=== PATIENT | male | born 1955 | race Caucasian/White ===

== ENCOUNTER 2016-07-24 11:12 | Inpatient (IN) | payer MEDICARE ==
[~2016-07-24] VITALS: Ht 180.3 cm; Wt 147.0 kg
--- NOTE | ~2016-07-24 | HEMODYNAMI ---
PATIENT:BELINDA WAGNER MEDICAL RECORD: [id number] : 57 LOCATION:[facility] D.[id number] ADMISSION DATE: 07/24/16 Generatedon:07/25/201615:09 Patient name: BELINDA WAGNER Patient #: [id number] SSN: : 1955 Date of study: 07/25/2016 Page: Of Hemodynamic Procedure Report Patient Data Patient Demographics Procedure consent was obtained First Name: BELINDA Gender: Male Last Name: KRISTY : 1955 Middle Initial: FABIO Age: 61 year(s) Patient #: [id number] Race: Unknown Additional ID: [id number] Contact details Address: [place] [address] State: [place] City: [place] Zip code: [address] Past Medical History Allergies Allergen Reaction Date Comments Reported Penicillins 07/25/2016 Admission Admission Data Admission Date: 07/24/2016 Admission Time: 11:12 Room #: D.2223 Height (in.): 69 BSA: 2.54 (m2) Height (cm.): 175.26 BMI: 47.85 (kg/m2) Weight (lbs.): 324 Weight (kg.): 146.96 Procedure Procedure Types Cath Procedure Peripheral Cath Diagnostic Procedure Miscellaneous Pleurex PARACENTESIS WITH GUIDE Peripheral vascular Intervention Procedure Description Procedure Date Procedure Date: 07/25/2016 Procedure Start Time: 14:11 Procedure Staff Name Function Donovan Hook MD Performing Physician Nela Beltran RT Scrub Melanie Hayden RN Nurse Kristine Wells RN Nurse Melanie Hayden RN Monitor Procedure Medications Medication Administration Route Dosage Versed I.V. 1 mg Fentanyl I.V. 50 mcg Versed I.V. 1 mg Fentanyl I.V. 50 mcg unlisted medication 25 Hemodynamics Rest BSA: 2.54 (m2) O2 Consumption: Estimated: 313.58 (ml/min) O2 Consumption indexed : Estimated:123.46 (ml/min/m) Heart Rate: 86 (bpm) Snapshots Pre Cath Intra NCS Post Cath Vital Signs Time Heart Resp SPO2 NIBP Rhythm Pain Sedation Rate (ipm) (%) (mmHg) Status Level (bpm) 14:11:26 85 16 99 No Cuff NSR 0 (11) , 10(A) No pain 14:15:26 85 17 98 No Cuff NSR 0 (11) , 10(A) No pain 14:19:25 86 18 99 No Cuff NSR 0 (11) , 10(A) No pain 14:23:25 85 22 97 No Cuff NSR 0 (11) , 10(A) No pain 14:27:25 86 16 97 No Cuff NSR 0 (11) , 10(A) No pain 14:31:24 85 17 96 No Cuff NSR 0 (11) , 10(A) No pain 14:35:24 84 17 97 No Cuff NSR 0 (11) , 10(A) No pain 14:39:24 84 21 98 No Cuff NSR 0 (11) , 10(A) No pain 14:43:23 86 18 98 No Cuff NSR 0 (11) , 10(A) No pain 14:47:23 84 17 98 No Cuff NSR 0 (11) , 10(A) No pain 14:51:22 82 17 98 No Cuff NSR 0 (11) , 10(A) No pain 14:55:22 82 21 98 No Cuff NSR 0 (11) , 10(A) No pain 14:59:22 82 20 98 No Cuff NSR 0 (11) , 10(A) No pain Medications Time Medication Route Dose Verified Delivered Reason Notes Effectivene ss by by 14:10:18 Fentanyl I.V. 50 Kristine Kristine for mcg Priscilla Priscilla sedation RN RN 14:10:25 Versed I.V. 1 mg Kristine Kristine for Priscilla Priscilla sedation RN RN 14:27:06 Versed I.V. 1 mg Kristine Kristine for Priscilla Priscilla sedation RN RN 14:27:16 Fentanyl I.V. 50 Kristine Kristine for mcg Priscilla Priscilla sedation RN RN 14:56:10 Albumin IVPB 25GM Melanie Hayden RN ordered Procedure Log Time Note 13:54:31 Patient Weight : 324 kg 13:54:42 Patient Height : 69 cm 14:02:51 Time tracking: Regular hours 14:02:57 Plan of Care:Hemodynamics will remain stable., Cardiac rhythm will remain stable., Comfort level will be maintained., Respiratory function will remain adequate., Patient/ family verbilizes understanding of procedure., Procedure tolerated without complication., Recovers from procedure without complications.. 14:03:04 Patient received from Med/Surg to IR Alert and oriented. Tansferred to table in Supine position. 14:03:05 Correct patient and procedure confirmed by team. 14:03:07 Signed procedure consent form obtained from patient. 14:03:15 H&P Date Dictated: 07/25/2016 Within 30 days and on chart.. 14:05:36 Family unavailable. 14:05:47 Is patient on blood thinner?No 14:05:51 Patient diabetic? No. 14:05:53 - 14:05:54 ----Pre-sedation anethsthesia assessment.---- 14:05:58 Previous problem with sedation/anesthesia? No ? 14:06:01 Snore? No 14:06:04 Sleep apnea? No 14:06:05 Deviated septum? No 14:06:07 Opens mouth fully? Yes 14:06:09 Sticks out tongue? Yes 14:06:13 Airway obstruction? No ? 14:06:17 Dentures? No ? 14:06:19 - 14:06:33 IV patent on arrival in port with 0.9% NaCl at [facility]. 14:06:42 Right abdomen area was prepped with chlora-prep and draped in sterile fashion 14:06:47 Alarms reviewed by Stephani Clark 14:06:48 Sharps counted by scrub and verified by [email or web address]. 14:06:48 - 14::28 Patient allergic to Penicillins 14::35 Physician arrived 14::52 --------ALL STOP TIME OUT------ 14::53 Final Timeout: patient, procedure, and site verified with staff and physician. All members of the team are in agreement. 14:10:03 Physical assessment completed. ASA score P 3 - A patient with severe systemic disease as per Donovan Hook MD. 14::09 Sedation plan: IV Moderate Sedation Versed, Fentanyl 14:10:18 Fentanyl 50 mcg I.V. was administered by Kristine Wells RN; for sedation; 14::25 Versed 1 mg I.V. was administered by Kristine Wells RN; for sedation; 14:10:34 ECG and BP/O2 sat monitors applied to patient. 14:10:35 Vital chart was started 14:10:36 Baseline sample Acquired. 14:10:37 Full Disclosure recording started 14:10:38 - 14:10:56 Procedure started. 14:11:02 Local anesthetic to Abdominal area with Lidocaine 1% by Donovan Hook MD.INITIAL ACCESS ONLY 14:27:06 Versed 1 mg I.V. was administered by Kristine Wells RN; for sedation; 14:27:16 Fentanyl 50 mcg I.V. was administered by Kristine Wells RN; for sedation; 14:28:04 [id number] 8FR CATH DRAIN TRAY opened to sterile field. 14:28:17 CONNECTING TUBE FOR DRAINAGE BAG opened to sterile field. 14:56:10 Albumin 25GM IVPB was administered by Melanie Hayden RN; as ordered; 15:05:14 10 LITERS DRAINED FROM ABDOMEN 15:05:19 Procedure ended.(Physican Out) 15:07:02 Procedure and supply charges have been captured, reviewed, submitted an d are correct. 15:09:13 Vital chart was stopped Device Usage Item Name Manufacture Quantity Catalog Hospital Part Current Mini mal Lot# / Number Charge Number Stock Stock Serial# Code [id number] CareFusion 1 [id number] 8FR CATH DRAIN TRAY CONNECTING TUBE Mobile 1 [id number] FOR DRAINAGE Scientific BAG Signature Audit Marcus Stage Time Signature Unsigned Intra-Procedure 07/25/2016 Nela Beltran 3:09:10 PM RT(R) Signatures Monitor : Melanie Hayden RN Signature : Date : Time : [address] [address]
[~2016-07-24 11:12] MED LIST: CHOLESTYRAMIN4 G/PK1 PO; CHRONULAC30 ML PO; NORCO 7.5/325 T1 TA1 PO; NORVASC10 MG PO; PRINIVIL20 MG PO; VISTARIL50 MG PO
--- NOTE | 2016-07-24 12:00 | NUR ---
RECEIVED TO ROOM 2223 AT THIS TIME FROM DR WYATT'S OFFICE VIA WHEELCHAIR. DAUGHTER AT PT'S SIDE. PT SELF AMBULATORY. DAUGHTER AT PT'S SIDE. ABDOMINAL GIRTH MEASURED AND 65 INCHES. ORIENTED PT TO ROOM AND CALL LIGHT. DENIES QUESTIONS OR PAIN. WILL CONTINUE WITH PLAN OF CARE.
[2016-07-24] MEDS ORDERED: HYDROCODONE-APA1 TAB PO (12:53)
[2016-07-24] MEDS ORDERED: ULTRAM50 MG PO (12:53)
[2016-07-24] MEDS ORDERED: K-DUR20 MEQ PO (12:54)
[2016-07-24] MEDS ORDERED: FUROSEMIDE40 MG PO (12:54)
[2016-07-24] MEDS ORDERED: OMEPRAZOLE20 M1 PO (12:55)
[2016-07-24] MEDS ORDERED: ATIVAN0.5 MG PO (12:55)
[2016-07-24] MEDS ORDERED: ALDACTONE100 MG PO (12:57)
[2016-07-24] MEDS ORDERED: ZOFRAN8 MG PO (12:59)
[2016-07-24] MEDS ORDERED: ZOFRAN ODT4 MG/UDTAB PO (13:00)
[2016-07-24] MEDS ORDERED: TRAZODONE HCL50 MG PO (13:23)
--- NOTE | 2016-07-24 13:50 | NUR ---
LEFT CHEST PORT ACCESSED WITH 20G 1 INCH ASHRAF NEEDLE IN STERILE FASHION X1 ATTEMPT. BRISK BLOOD RETURN PRESENT. DRESSING DATED. PT TOLERATED WITH MINIMAL COMPLAINTS OF PAIN. WILL CONTINUE WITH PLAN OF CARE.
[2016-07-24 13:51] VITALS: BP 111/69; BMI 45.3
[2016-07-24 14:16] LABS: BASOPHILS 1.2 % (0.0-2.0); EOSINOPHILS 8.1 % (0-7); HEMATOCRIT 31.8 % (42.0-54.0); HEMOGLOBIN 10.5 g/dL (13.5-17.5); IMMATURE GRANULOCYTES 0.5 % (0-5); LYMPHOCYTES 21.5 % (15-50); MCH 28.1 pg (26.0-34.0); MEAN PLATELET VOLUME 10.2 fL (7.4-10.4); MONOCYTES 18.6 % (2-11); NEUTROPHILS 50.1 % (40-80); PLATELET COUNT 93 10x3/uL (130-400); RBC 3.74 10x6/uL (4.20-6.10); RDW 16.5 % (11.5-14.5); WBC 4.1 10x3/uL (4.8-10.8)
[2016-07-24 14:32] LABS: APTT 37.3 SECONDS (22.8-39.4); INR 1.49 (0.85-1.17); PROTIME 17.9 SECONDS (11.6-15.0)
[2016-07-24 14:40] LABS: ALBUMIN 1.8 g/dL (3.4-5.0); ALKALINE PHOSPHATASE 30 U/L (46-116); ALT (SGPT) 12 U/L (10-68); BILIRUBIN - TOTAL 0.82 mg/dL (0.2-1.3); CALC OSMOLALITY 270 mosm/kg (275-300); CALCIUM 7.4 mg/dL (8.5-10.1); CARBON DIOXIDE 28.6 mmol/L (21.0-32.0); CHLORIDE - SERUM 102 mmol/L (98-107); GLUCOSE 96 mg/dL (74-106); POTASSIUM - SERUM 4.2 mmol/L (3.5-5.1); PROTEIN - SERUM 5.9 g/dL (6.4-8.2); SODIUM 136 mmol/L (136-145); UREA NITROGEN 9 mg/dL (7-18)
[2016-07-24 15:10] LABS: CREATININE - SERUM 0.9 mg/dL (0.6-1.3); eGFR NON AFRICAN AMERICAN > 90 mL/min (90-120)
[2016-07-24 17:09] VITALS: BP 120/78
[2016-07-24 18:51] LABS: APPEARANCE CLEAR (CLEAR); BILIRUBIN NEGATIVE (NEGATIVE); COLOR YELLOW (YELLOW); GLUCOSE NEGATIVE (NEGATIVE); KETONE NEGATIVE (NEGATIVE); LEUKOCYTE ESTERASE NEGATIVE (NEGATIVE); NITRITE NEGATIVE (NEGATIVE); PROTEIN NEGATIVE (NEGATIVE); UROBILINOGEN NORMAL (NORMAL)
[2016-07-24] MEDS ORDERED: EPCLUSA PO (19:03)
[2016-07-24 20:00] VITALS: BP 161/86
--- NOTE | 2016-07-24 20:00 | NUR ---
ASSESSMENT PER FLOWSHEET. AT BEDSIDE. IV PATENT LEFT INFUSAPORT SALINE LOCKED SITE CLEAR. ABDOMEN DISTENDED AND FIRM BOTH LEGS RED AND SWOLLEN. SR UP X2 CALL LIGHT WITHIN REACH. =4 EDEMA NOTED TO BOTH LEGS. PERMITS SIGNED AND ON CHART FOR CT GUIDED PARACENTESIS IN AM.
--- NOTE | 2016-07-24 21:15 | NUR ---
MEDS GIVEN PER JUN. C/O PAIN IN BOTH LEGS HAS CHRONIC ACHING OF BOTH LEGS. NORCO 7.5MG TAB ON PO GIVEN FOR PAIN CONTROL RATES PAIN LEVEL #7. PT GETS UP AD GIFTY TO BR VOIDS IN BATHROOM.
--- NOTE | 2016-07-24 23:00 | NUR ---
EYES CLOSED RESPIRATIONS WITH EASE AND UNLABORED.
[2016-07-25] VITALS (13 sets, daily range): BP systolic 100–145; BP diastolic 47–80; Ht 180.3 cm; Wt 147.0 kg
--- NOTE | 2016-07-25 00:33 | NUR ---
NPO FOR PROCEDURE IN AM.
--- NOTE | 2016-07-25 04:32 | NUR ---
EYES CLOSED RESPIRATIONS WITH EASE AND UNLABORED.DAUGHTER AT BEDSIDE.
--- NOTE | 2016-07-25 06:00 | NUR ---
DIANNA HAMPTON HELD PT NPO FOR RADIOLOGY PROCEDURE. NO CHANGES IN ASSESSMENT.
--- NOTE | 2016-07-25 07:35 | NUR ---
SITTING UP IN BED HAVING A BREATHING TREATMENT, DENIES NEEDS, BED LOWEST POSITION, CALL LIGHT IN REACH, WILL CONTINUE TO MONITOR
--- NOTE | 2016-07-25 13:48 | NUR ---
Patient Name: BELINDA WAGNER Admission Status: Urgent Accout number: [id number] Admission Date: 07-24-2016 : 1955 Admission Diagnosis: Attending: JAYESH Current LOS: 1 Anticipated DC Date: 07-29-2016 Planned Disposition: Home or Self Care Primary Insurance: MEDICARE A & B Discharge Planning Comments: CM MET WITH PATIENTS DAUGHTER (CHARY) REGARDING D/C NEEDS AND PLANS. PATIENT WAS SLEEPING. PATIENT LIVES ALONE AND DAUGHTER WILL DRIVE HIM HOME AT DISCHARGE. PATIENT HAS NO STEPS OR STAIRS AT HIS HOME. PATIENT IS INDEPENDENT WITH HIS CARE AND HAS NO DME AT HOME. PATIENTS PCP IS DR. RAMSAY IN [place] AND HE USES [facility] IN [place] FOR HIS PHARMACY. DAUGHTER STATED HE HAS NOT HAD HOME HEALTH AND DOES NOT KNOW IF HE WOULD NEED IT AT DISCHARGE-WANTS TO SEE WHAT DOCTOR THINKS. CM WILL CONTINUE TO FOLLOW PATIENT WITH D/C NEEDS AND PLANS. PCP DR[facility] IN [place]- [phone] CHARY ASTUDILLO [phone] Track Watchman: Paloma Fenton How many steps to enter\exit or inside your home? 0 0 * PCP DR. RAMSAY IN [place] 0 * Pharmacy [facility] IN [place] 0 * Preadmission Environment Home Alone 0 * ADLs Independent 0 * Equipment None 0 * List name and contact numbers for known caregivers / representatives who currently or will assist patient after discharge: CHARY ASTUDILLO (DAUGHTER) [phone] 0 * Community resources currently utilized None 0 * Additional services required to return to the preadmission environment? Yes 0 * Can the patient safely return to the preadmission environment? Yes 0 * Has this patient been hospitalized within the prior 30 days at any hospital? No 0 Grand Total: 0
--- NOTE | 2016-07-25 19:30 | NUR ---
PT RECEIVED SITTING UP IN BED WATCHING TELEVISION. ASSESSMENT COMPLETED, SEE SHIFT ASSESSMENT. PT DENIES PAIN OR NEEDS AT THIS TIME. CALLL LIGHT AND H2O IN PT REACH.
--- NOTE | 2016-07-25 21:30 | NUR ---
PT SITTING UP IN BED WATCHING TELEVISION, DAUGHTER AT BEDSIDE. NO S/S OF DISTRESS NOTED. PT DENIES NEEDS AT THIS TIME. CALL LIGHT AND H2O IN PT REACH.
--- NOTE | 2016-07-25 23:30 | NUR ---
PT RESTING IN BED WITH EYES CLOSED, DAUGHTER SLEEPING AT BED SIDE. NO S/S OF DISTRESS NOTED. CALL LIGHT AND H2O IN PT REACH.
[2016-07-26] VITALS: BP 128/65
[2016-07-26 04:00] VITALS: BP 146/71
--- NOTE | 2016-07-26 04:02 | NUR ---
RN NOTE: PT LYING IN HIGH AL'S POSITION WITH EYES CLOSED AND EASY RESPIRATIONS. BLE VERY EDEMATOUS AND REDDENED. LEFT INFUSAPORT SALINE LOCKED. FAMILY MEMBER IS AT BEDSIDE. SIDE RAILS UP X2 FOR SAFETY.
--- NOTE | 2016-07-26 07:30 | NUR ---
SLEEPING, NO DISTRESS NOTED, BREATHING EVEN AND UNLABORED, BED LOWEST POSITION, CALL LIGHT IN REACH, WILL CONTINUE TO MONITOR
[2016-07-26 07:48] LABS: BASOPHILS 0.9 % (0.0-2.0); EOSINOPHILS 6.9 % (0-7); HEMATOCRIT 31.2 % (42.0-54.0); HEMOGLOBIN 10.3 g/dL (13.5-17.5); IMMATURE GRANULOCYTES 0.2 % (0-5); LYMPHOCYTES 23.9 % (15-50); MCV 84.8 fL (80.0-100.0); MEAN PLATELET VOLUME 11.2 fL (7.4-10.4); MONOCYTES 17.5 % (2-11); NEUTROPHILS 50.6 % (40-80); PLATELET COUNT 108 10x3/uL (130-400); RBC 3.68 10x6/uL (4.20-6.10); RDW 16.7 % (11.5-14.5); WBC 4.5 10x3/uL (4.8-10.8)
[2016-07-26 07:57] LABS: ALBUMIN 2.1 g/dL (3.4-5.0); ALKALINE PHOSPHATASE 57 U/L (46-116); BILIRUBIN - TOTAL 0.85 mg/dL (0.2-1.3); CALCIUM 7.7 mg/dL (8.5-10.1); CARBON DIOXIDE 29.3 mmol/L (21.0-32.0); CHLORIDE - SERUM 103 mmol/L (98-107); CREATININE - SERUM 0.7 mg/dL (0.6-1.3); GLUCOSE 99 mg/dL (74-106); POTASSIUM - SERUM 3.8 mmol/L (3.5-5.1); PROTEIN - SERUM 5.9 g/dL (6.4-8.2); SODIUM 138 mmol/L (136-145); eGFR NON AFRICAN AMERICAN > 90 mL/min (90-120)
[2016-07-26 07:58] LABS: ALT (SGPT) 18 U/L (10-68); CALC OSMOLALITY 273 mosm/kg (275-300); UREA NITROGEN 6 mg/dL (7-18)
[2016-07-26 08:04] VITALS: BP 134/76
--- NOTE | 2016-07-26 09:11 | NUR ---
SLEEPING, EASILY AROUSED BY VOICE, SITTING UP GETTING READY TO EAT, DENIES NEEDS, BED LOWEST POSITION, ASSESSMENT COMPLETE, CALL LIGHT IN REACH, WILL CONTINUE TO MONITOR
[2016-07-26 12:45] VITALS: BP 148/63
[2016-07-26 16:10] VITALS: BP 122/50
--- NOTE | 2016-07-26 19:30 | NUR ---
PT RECEIVED RESITING IN BED WITH EYES CLOSED. ASSESSMENT COMPLETED, SEE SHIFT ASSESSMENT. AROUSES TO VERBAL STIMULI. DENIES PAIN OR NEEDS AT THIS TIME. CALL LIGHT AND H2O IN PT REACH. BED IN LOW POSITION. SIDE RAILS UP X2.
[2016-07-26 20:33] VITALS: BP 136/66
[2016-07-27 00:17] VITALS: BP 109/60
[2016-07-27 04:00] VITALS: BP 115/52
--- NOTE | 2016-07-27 05:53 | NUR ---
PT IS ASLEEP IN BED WITH NO RESPIRATORY DISTRESS NOTED. HIS IS IN THE BEDSIDE CHAIR TRYING TO SLEEP. THE BED IS LOW, RAILS UP X'S 2 WITH THE CALL LIGHT AT HAND.
--- NOTE | 2016-07-27 07:00 | NUR ---
REPORT RECEIVED FROM CONTRACT PARALEGAL NURSE. CALL LIGHT IN REACH.
--- NOTE | 2016-07-27 08:10 | NUR ---
LYING IN BED WITH EYES CLOSED. RESP EVEN AND UNLABORED. CALL LIGHT IN REACH. DAUGHTER IN ROOM.
[2016-07-27 08:24] VITALS: BP 133/70
[2016-07-27 09:15] LABS: CALC OSMOLALITY 271 mosm/kg (275-300); CALCIUM 7.5 mg/dL (8.5-10.1); CARBON DIOXIDE 29.9 mmol/L (21.0-32.0); CHLORIDE - SERUM 102 mmol/L (98-107); CREATININE - SERUM 0.8 mg/dL (0.6-1.3); GLUCOSE 99 mg/dL (74-106); POTASSIUM - SERUM 3.7 mmol/L (3.5-5.1); SODIUM 137 mmol/L (136-145); UREA NITROGEN 6 mg/dL (7-18); eGFR NON AFRICAN AMERICAN > 90 mL/min (90-120)
--- NOTE | 2016-07-27 10:17 | NUR ---
KEVINCO PO PER C/O PAIN. CALL LIGHT IN REACH.
--- NOTE | 2016-07-27 11:54 | NUR ---
ASSESSMENT COMPLETED. AM MEDS ADMINISTERED. CALL LIGHT IN REACH. DAUGHTER IN ROOM. WILL CONTINUE WITH PLAN OF CARE.
[2016-07-27 12:14] VITALS: BP 130/66
--- NOTE | 2016-07-27 13:05 | NUR ---
PATIENT IN MID AL POSITION RESTING WITH EYES CLOSED. RESPIRATIONS EVEN AND UNLABORED. SIDE RAILS UP X2. BED IN LOW POSITION. CALL LIGHT IN REACH.
--- NOTE | 2016-07-27 13:10 | NUR ---
STATES PAIN IS DOWN TO A 5. FAMILY AT BEDSIDE. CALL LIGHT IN REACH.
--- NOTE | 2016-07-27 14:31 | NUR ---
CRISTIAN RAO AND MARKEL PO. CALL LIGHT IN REACH.
--- NOTE | 2016-07-27 15:59 | NUR ---
AFTERNOON MEDS ADMINISTERED. CALL LIGHT IN REACH. FAMILY IN ROOM.
[2016-07-27 16:30] VITALS: BP 114/67
--- NOTE | 2016-07-27 16:46 | NUR ---
RESTING WITH EYES CLOSED. RESP EVEN AND UNLABORED. CALL LIGHT IN REACH.
--- NOTE | 2016-07-27 18:06 | NUR ---
NO CHANGES IN INITIAL ASSESSMENT. DAUGHTER AT BEDSIDE. STILL UNABLE TO WEAR SCDs. CALL LIGHT IN REACH. WILL CONTINUE WITH PLAN OF CARE.
[2016-07-27 20:00] VITALS: BP 140/65
[2016-07-28] VITALS: BP 109/57
--- NOTE | 2016-07-28 02:04 | NUR ---
PATIENT ASLEEP IN BED WITH DAUGHTER AT BEDSIDE. ABD IS DISTENDED AND TIGHT. RESP ARE DYSPENA ON EXERSTION. STATED PAIN WAS AT 9/10. WILL ADMINISTER MEDS PRESCRIBED. INSTRUCTED TO CALL IF NEEDED ANYTHING. VERBALIZED UNDERSTANDING. BED LOW, LOCKED, CALL LIGHT IN REACH.
[2016-07-28 04:00] VITALS: BP 103/61
--- NOTE | 2016-07-28 04:38 | NUR ---
BROUGHT PATIENT MILK PER HIS REQUEST. PATIENT RESTING IN BED WITH GUEST AT BEDSIDE AND DENIES OTHER NEEDS AT THIS TIME. BED IN LOWEST POSITION AND CALL LIGHT WITHIN REACH. ENCOURAGED PATIENT TO CALL IF HE HAS FURTHER NEEDS.
--- NOTE | 2016-07-28 08:35 | NUR ---
WALKING ROUNDS,ASSESSMENT PER FLOW SHEET.PT WITHOUT DISTRESS.
[2016-07-28 10:07] VITALS: BP 112/68
--- NOTE | 2016-07-28 12:30 | NUR ---
REMAINS WITHOUT NEEDS.LUNCH TRAY HERE.CALL LIGHT IN REACH.FAMILY REMAINS AT SIDE.
[2016-07-28 12:50] VITALS: BP 114/70
[2016-07-28 17:17] VITALS: BP 116/68
--- NOTE | 2016-07-28 18:00 | NUR ---
REMAINS WITHOUT NEEDS,WITHOUT DISTRESS.CONT PLAN OF CARE
[2016-07-28 19:00] VITALS: BP 137/62
[2016-07-29] VITALS: BP 156/76
--- NOTE | 2016-07-29 02:11 | NUR ---
EYES CLOSED RESPIRATIONS WITH EASE AND UNLABORED.
--- NOTE | 2016-07-29 02:28 | NUR ---
PATIENT LYING IN BED. DAUGHTER AT BEDSIDE. PT ALERT AND ORIENTED X4. ADMINISTERED MEDS PRESCRIBED. DENIED FURTHER NEEDS AT THIS TIME. INSTRUCTED TO CALL IF NEEDED ANYTHING. BED LOW, LOCKED, CALL LIGHT IN REACH.
[2016-07-29 04:00] VITALS: BP 110/68
--- NOTE | 2016-07-29 05:46 | NUR ---
PATIENT IS RESTING IN BED COMFORTABLY WITH DAUGHTER AT BEDSIDE. DENIES PAIN AT THIS TIME. DENIES FURTHER NEEDS. INSTUCTED TO CALL IF NEEDED ANYTHING. BED LOW LOCKED CALL LIGHT IN REACH.
[2016-07-29 08:34] VITALS: BP 150/69
[2016-07-29 11:25] VITALS: BP 125/64
--- NOTE | 2016-07-29 14:05 | NUR ---
NUTRITION MONITORING AND EVAL CHART REVIEWED. CONTINUES REG DIET, 25% INTAKE RECENT MEALS. WILL HONOR FOOD PREFERENCES, MONITOR PO INTAKE. RD FOLLOWING
[2016-07-29 15:40] VITALS: BP 110/69
--- NOTE | 2016-07-29 18:57 | NUR ---
PATIENT IN BED EATING DINNER, JOKING WITH STAFF. NO NEEDS EXPRESSED AT THIS TIME. BED LOW, CALL LIGHT IN REACH BED RAILS UP X 2 CONTINUE PLAN OF CARE
[2016-07-29 19:00] VITALS: BP 104/52
--- NOTE | 2016-07-29 23:40 | NUR ---
PATIENT LYING IN BED WATCHING TV. DAUGHTER AT BEDSIDE. ALERT AND ORIENTED X4. STATED PAIN 8/10. WILL ADMINISTER MEDS PRESRIBED. PROFILE STITCHING MACHINE OPERATOR IS GOING TO PASS 2100 MEDS. PT REFUSED 3 OF HIS MEDS. DENIED FURTHER NEEDS AT THIS TIME. INSTRUCTED TO CALL IF NEEDED ANYTHING. BED LOW, LOCKED CALL LIGHT IN REACH.
[2016-07-30] VITALS: BP 130/73
--- NOTE | 2016-07-30 02:44 | NUR ---
PATIENTS COMP IN ROOM HAS BEEN LOGGED OFF AND THEREFORE I CANNLALITHA SCAN HIM IN OR HIS MEDS. WE CALLED IT AT THE BEGINING OF THE NIGHT AND COULDNT GET ANYONE TO LOOK AT. WILL PASS ON TO AM NURSE.
--- NOTE | 2016-07-30 02:46 | NUR ---
PATIENT IS RESTING COMFORTABLY IN BED WITH DAUGHTER AT BEDSIDE. DENIED PAIN AT THIS TIME. DENIED FURTHER NEEDS AT THIS TIME. INSTUCTED TO CALL IF NEEDED ANYTHING. BED LOW, LOCKED CALL LIGHT IN REACH.
[2016-07-30 04:00] VITALS: BP 145/70; BP 82/37
--- NOTE | 2016-07-30 05:52 | NUR ---
ADMINISTERED MORNING MEDS. COMP IN ROOM IS STILL OFFLINE. PATIENT IS RESTING IN BED WITH DAUGHTER AT BEDSIDE. DENIES PAIN AT THIS TIME. DENIES FURTHER NEEDS. INSTRUCTED TO CALL IF NEEDED ANYTHING. VERBALIZED UNDERSTANDING. BED LOW, LOCKED, CALL LIGHT IN REACH.
--- NOTE | 2016-07-30 07:23 | NUR ---
SLEEPING AT THIS TIME RESPIRATIONS EVEN AND NON LABORED. DAUGHTER AT BEDSIDE. CALL LIGHT IN REACH, WILL CONTINUE WITH PLAN OF CARE.
[2016-07-30 08:10] VITALS: BP 125/65
[2016-07-30 09:54] LABS: HEMATOCRIT 32.7 % (42.0-54.0); HEMOGLOBIN 10.7 g/dL (13.5-17.5); LYMPHOCYTES 21.2 % (15-50); MCH 27.9 pg (26.0-34.0); MCHC 32.7 g/dL (31.0-37.0); MCV 85.2 fL (80.0-100.0); MEAN PLATELET VOLUME 9.5 fL (7.4-10.4); NEUTROPHILS 50.6 % (40-80); PLATELET COUNT 103 10x3/uL (130-400); RBC 3.84 10x6/uL (4.20-6.10); RDW 17.8 % (11.5-14.5); WBC 4.4 10x3/uL (4.8-10.8)
[2016-07-30 10:14] LABS: ALBUMIN 1.9 g/dL (3.4-5.0); ALKALINE PHOSPHATASE 62 U/L (46-116); ALT (SGPT) 19 U/L (10-68); CALC OSMOLALITY 269 mosm/kg (275-300); CALCIUM 7.7 mg/dL (8.5-10.1); CARBON DIOXIDE 27.6 mmol/L (21.0-32.0); CHLORIDE - SERUM 104 mmol/L (98-107); CREATININE - SERUM 0.7 mg/dL (0.6-1.3); GLUCOSE 105 mg/dL (74-106); POTASSIUM - SERUM 4.1 mmol/L (3.5-5.1); SODIUM 136 mmol/L (136-145); UREA NITROGEN 7 mg/dL (7-18); eGFR NON AFRICAN AMERICAN > 90 mL/min (90-120)
--- NOTE | 2016-07-30 10:39 | NUR ---
SCHEDULED MEDICATIONS ADMINISTERED AT THIS TIME. PRN NORCO ADMINISTERED FOR PAIN. DAUGHTER AT BEDSIDE. PT AMBULATES AND SELF POSITIONS FOR COMFORT. SRX2 WITH BED IN LOWEST POSITION AND WHEELS LOCKED. CALL LIGHT IN REACH, WILL CONTINUE WITH PLAN OF CARE.
[2016-07-30 11:32] VITALS: BP 110/63
[2016-07-30 19:00] VITALS: BP 109/64
--- NOTE | 2016-07-30 20:47 | NUR ---
rec'd in bed eyes closed resp' deep and even visitor at bedside.will continue to monitor for any chges and follow current plan of care.
[2016-07-31 04:00] VITALS: BP 116/66
[2016-07-31 08:24] VITALS: BP 95/73
--- NOTE | 2016-07-31 08:58 | NUR ---
READY TO BE DISCHARGED HOME, DENIES NEEDS
[2016-07-31] MEDS ORDERED: ALDACTONE100 MG PO (09:22)
[2016-07-31] MEDS ORDERED: FUROSEMIDE40 MG PO (09:23)
[2016-07-31] MEDS ORDERED: EPCLUSA PO (09:24)
[2016-07-31] MEDS ORDERED: CHRONULAC30 ML PO (09:24)
[2016-07-31] MEDS ORDERED: K-DUR20 MEQ PO (09:24)
--- NOTE | 2016-07-31 10:50 | NUR ---
CM REASSESSMENT NOTE: PATIENT IS DISCHARGING HOME TODAY-DAUGHTER DRIVING HIM. PATIENT REFUSED HOME HEALTH IN FRONT OF DAUGHTER AND STATED HE HAD NO OTHER NEEDS. CM EXPLAINED IF HE DECIDES HE NEEDS HOME HEALTH THAT HE COULD CALL DR. WYATT AND THEY COULD SET HIM UP WITH IT. HE STATED OK AND DAUGHTER AGREED.
--- NOTE | 2016-07-31 11:09 | NUR ---
PATIENT PORT ACCESS DC'D AT THIS TIME. 2X2 AND TEGADERM PLACED OVER SITE. NO COMPLAINTS AT THIS TIME. AWAITING WC FOR DC. CALL LIGHT WITHIN REACH.
--- NOTE | 2016-07-31 12:38 | NUR ---
DISCHARGE PAPERS AND INSTRUCTIONS GIVEN TO PATIENT AND DAUGHTER, QUESTIONS ANSWERED, PORT DE-ACCESSED BY KAREN ARAUZ, DISCHARGED PER WC WITH BELONGINGS, PATIENTS HOME MEDICATIONS GIVEN AND PLACED IN DAUGHTERS PURSE
== END 2016-07-31 12:40 | disposition home or self-care (01) | DRG 433 ==
LOC: D.MS 11:12
PROVIDERS: General Practice; Internal Medicine Hematology; Radiology Diagnostic Radiology; ADMIT Legal Medicine
PROC: 0W9G3ZZ Drainage of Peritoneal Cavity, Percutaneous Approach (ICD-10-PCS; principal; 2016-07-25 09:00)
DX: K70.31 Alcoholic cirrhosis of liver with ascites (principal); C22.0 Liver cell carcinoma; Z68.42 Body mass index [BMI] 45.0-49.9, adult; B19.20 Unspecified viral hepatitis C without hepatic coma; I10 Essential (primary) hypertension; E66.01 Morbid (severe) obesity due to excess calories; D64.9 Anemia, unspecified; D69.6 Thrombocytopenia, unspecified

== ENCOUNTER → 2019-09-21 18:54 | Outpatient (CLI) | payer MEDICARE ==
[2016-07-25 13:40] VITALS: BMI 45.2
[~2019-09-21 18:54] MED LIST changes: +ALDACTONE100 MG PO; +ATIVAN0.5 MG PO; +EPCLUSA PO; +FUROSEMIDE40 MG PO; +HYDROCODONE-APA1 TAB PO; +K-DUR20 MEQ PO; +OMEPRAZOLE20 M1 PO; +TRAZODONE HCL50 MG PO; +ULTRAM50 MG PO; +ZOFRAN ODT4 MG/UDTAB PO; +ZOFRAN8 MG PO
[2019-09-21 19:31] LABS: HEMATOCRIT 41.8 % (42.0-54.0); HEMOGLOBIN 13.3 g/dL (13.5-17.5); MCHC 31.8 g/dL (31.0-37.0); PLATELET COUNT 99 10x3/uL (130-400); RBC 4.75 10x6/uL (4.20-6.10); RDW 17.4 % (11.5-14.5); WBC 4.6 10x3/uL (4.8-10.8)
[2019-09-21 19:49] LABS: ALBUMIN 3.2 g/dL (3.4-5.0); ALKALINE PHOSPHATASE 138 U/L (30-120); ALT (SGPT) 41 U/L (10-68); BILIRUBIN - TOTAL 0.43 mg/dL (0.2-1.3); CALC OSMOLALITY 282 mosm/kg (275-300); CALCIUM 8.3 mg/dL (8.5-10.1); CARBON DIOXIDE 29.3 mmol/L (21.0-32.0); CHLORIDE - SERUM 106 mmol/L (98-107); CREATININE - SERUM 0.8 mg/dL (0.6-1.3); GLUCOSE 114 mg/dL (74-106); POTASSIUM - SERUM 3.7 mmol/L (3.5-5.1); PROTEIN - SERUM 7.3 g/dL (6.4-8.2); SODIUM 142 mmol/L (136-145); UREA NITROGEN 10 mg/dL (7-18); eGFR NON AFRICAN AMERICAN > 90 mL/min (90-120)
[2019-09-21 20:44] LABS: EOSINOPHILS 15 % (0-7); LYMPHOCYTES 21 % (15-50); MONOCYTES 1 % (2-11); NEUTROPHILS 63 % (40-80); PLATELET ESTIMATE DECREASED
== END | disposition home or self-care (01) ==
LOC: D.LABREF 18:54
PROVIDERS: ATTEND Legal Medicine
DX: C22.7 Other specified carcinomas of liver (principal)

== ENCOUNTER 2020-08-23 09:57 | Inpatient (IN) | payer MEDICARE, MEDICAID ==
[2020-08-23] VITALS (10 sets, daily range): BP systolic 127–162; BP diastolic 56–76; BMI 34.9
[~2020-08-23] VITALS: Ht 180.3 cm; Wt 113.4 kg
[2020-08-23 10:51] LABS: BASOPHILS 1.6 % (0-2); EOSINOPHILS 5.6 % (0-7); HEMATOCRIT 30.3 % (42.0-54.0); HEMOGLOBIN 9.7 g/dL (13.5-17.5); IMMATURE GRANULOCYTES 0.2 % (0-5); LYMPHOCYTE ABS# 0.45 10x3/uL (1.32-3.57); LYMPHOCYTES 8.2 % (15-50); MONOCYTES 16.5 % (2-11); NEUTROPHIL ABS# 3.73 10x3/uL (1.78-5.38); NEUTROPHILS 67.9 % (40-80); RBC 4.21 10x6/uL (4.20-6.10); RDW 20.7 % (11.5-14.5); WBC 5.5 10x3/uL (4.8-10.8)
[2020-08-23 10:54] LABS: PLATELET COUNT 140 10x3/uL (130-400)
[2020-08-23 10:59] LABS: CALC OSMOLALITY 271 mosm/kg (275-300); CALCIUM 7.8 mg/dL (8.5-10.1); CARBON DIOXIDE 24.5 mmol/L (21.0-32.0); CHLORIDE - SERUM 103 mmol/L (98-107); CREATININE - SERUM 1.2 mg/dL (0.6-1.3); GLUCOSE 120 mg/dL (74-106); POTASSIUM - SERUM 3.7 mmol/L (3.5-5.1); SODIUM 135 mmol/L (136-145); UREA NITROGEN 15 mg/dL (7-18); eGFR NON AFRICAN AMERICAN 65 mL/min (90-120)
[2020-08-23 11:01] LABS: APTT 36.8 SECONDS (22.8-39.4); INR 1.65 (0.85-1.17); PROTIME 18.1 SECONDS (11.6-15.0)
[2020-08-23 11:17] LABS: ALBUMIN 2.1 g/dL (3.4-5.0); ALKALINE PHOSPHATASE 97 U/L (30-120); ALT (SGPT) 24 U/L (10-68); BILIRUBIN - TOTAL 1.01 mg/dL (0.2-1.3); CKMB 0.6 U/L (0.0-3.6); CREATINE KINASE 58 UL (21-232); PRO BNP 269 pg/mL (0-125); PROTEIN - SERUM 7.3 g/dL (6.4-8.2); TROPONIN-I < 0.017 ng/mL (0.000-0.060)
--- NOTE | 2020-08-23 13:41 | NUR ---
arrives to unit per bed, iv per l hand infusing albumin, cont to monitor
--- NOTE | 2020-08-24 03:55 | NUR ---
I have reviewed this patient and I concur with the Shift Assessment completed by the Licensed Practical Nurse today this shift.
[2020-08-24 04:00] VITALS: BP 129/64
[2020-08-24 06:44] LABS: ALBUMIN 2.4 g/dL (3.4-5.0); ALKALINE PHOSPHATASE 72 U/L (30-120); BILIRUBIN - TOTAL 0.91 mg/dL (0.2-1.3); CALC OSMOLALITY 274 mosm/kg (275-300); CALCIUM 7.4 mg/dL (8.5-10.1); CARBON DIOXIDE 24.4 mmol/L (21.0-32.0); CHLORIDE - SERUM 105 mmol/L (98-107); GLUCOSE 123 mg/dL (74-106); POTASSIUM - SERUM 3.9 mmol/L (3.5-5.1); PROTEIN - SERUM 6.2 g/dL (6.4-8.2); SODIUM 137 mmol/L (136-145); UREA NITROGEN 13 mg/dL (7-18); eGFR NON AFRICAN AMERICAN 80 mL/min (90-120)
[2020-08-24 06:46] LABS: ALT (SGPT) 13 U/L (10-68)
[2020-08-24 06:58] LABS: BASOPHILS 1.1 % (0-2); HEMATOCRIT 26.2 % (42.0-54.0); HEMOGLOBIN 8.2 g/dL (13.5-17.5); IMMATURE GRANULOCYTES 0.2 % (0-5); LYMPHOCYTE ABS# 0.55 10x3/uL (1.32-3.57); LYMPHOCYTES 11.7 % (15-50); MCH 22.6 pg (26.0-34.0); MCHC 31.3 g/dL (31.0-37.0); MCV 72.2 fL (80.0-100.0); MONOCYTES 15.1 % (2-11); NEUTROPHILS 65.9 % (40-80); RBC 3.63 10x6/uL (4.20-6.10); RDW 20.8 % (11.5-14.5); WBC 4.7 10x3/uL (4.8-10.8)
[2020-08-24 07:03] LABS: PLATELET COUNT 108 10x3/uL (130-400)
[2020-08-24 08:57] VITALS: BP 130/60
[2020-08-24 13:10] VITALS: Ht 180.3 cm; Wt 113.4 kg
[2020-08-24 13:13] VITALS: BP 120/64
[2020-08-24] MEDS ORDERED: ALDACTONE50 MG PO (16:24)
[2020-08-24] MEDS ORDERED: ATIVAN0.5 MG PO (16:25)
[2020-08-24] MEDS ORDERED: HYDROCODON-ACE1 EA10 (16:27)
[2020-08-24] MEDS ORDERED: CHRONULAC30 ML PO (16:28)
[2020-08-24 16:29] VITALS: BP 129/64
[2020-08-24] MEDS ORDERED: HYDROCODON-ACE1 EA10 PO (16:35)
[2020-08-24 20:00] VITALS: BP 131/66
[2020-08-25] VITALS: BP 145/100
[2020-08-25 04:00] VITALS: BP 118/51
--- NOTE | 2020-08-25 07:58 | NUR ---
RESTING IN BED WITH EYES CLOSED, EASILY AROUSED TO SPEECH. IV LOCATED TO LEFT WRIST CURRENTLY SL. NO CURRENT S/S OF DISTRESS, DENIES CURRENT NEEDS, WILL CONT TO MONITOR.
[2020-08-25 10:18] VITALS: BP 127/55
[2020-08-25 10:55] LABS: ALBUMIN 2.4 g/dL (3.4-5.0); BILIRUBIN - TOTAL 1.32 mg/dL (0.2-1.3); CALCIUM 7.8 mg/dL (8.5-10.1); CARBON DIOXIDE 24.3 mmol/L (21.0-32.0); CREATININE - SERUM 1.2 mg/dL (0.6-1.3); POTASSIUM - SERUM 4.3 mmol/L (3.5-5.1); PROTEIN - SERUM 6.5 g/dL (6.4-8.2)
[2020-08-25 11:59] LABS: BASOPHILS 1.1 % (0-2); EOSINOPHILS 5.8 % (0-7); HEMOGLOBIN 9.1 g/dL (13.5-17.5); IMMATURE GRANULOCYTES 0.2 % (0-5); LYMPHOCYTE ABS# 0.59 10x3/uL (1.32-3.57); LYMPHOCYTES 10.7 % (15-50); MCH 22.6 pg (26.0-34.0); MCHC 31.4 g/dL (31.0-37.0); MCV 72.1 fL (80.0-100.0); MONOCYTES 13.6 % (2-11); NEUTROPHIL ABS# 3.77 10x3/uL (1.78-5.38); NEUTROPHILS 68.6 % (40-80); PLATELET COUNT 129 10x3/uL (130-400); RBC 4.02 10x6/uL (4.20-6.10); RDW 20.7 % (11.5-14.5); WBC 5.5 10x3/uL (4.8-10.8)
[2020-08-25 13:05] VITALS: BP 126/51
[2020-08-25 17:31] VITALS: BP 135/74
[2020-08-25 21:01] VITALS: BP 146/57
--- NOTE | 2020-08-26 04:17 | NUR ---
I have reviewed this patient and I concur with the Shift Assessment completed by the Licensed Practical Nurse today this shift.
[2020-08-26 06:21] VITALS: BP 105/66
[2020-08-26 09:11] VITALS: BP 174/60
--- NOTE | 2020-08-26 11:37 | NUR ---
RESTING IN BED, NO DISTRESS NOTED, EYES CLOSED, ABD ROUNDED, DIDNT TAKE PO MEDS THIS AM
[2020-08-26 13:20] VITALS: BP 147/73
[2020-08-26 18:27] VITALS: BP 146/69
[2020-08-26 22:08] VITALS: BP 156/65
[2020-08-27 01:24] VITALS: BP 151/71
--- NOTE | 2020-08-27 03:56 | NUR ---
I have reviewed this patient and I concur with the Shift Assessment completed by the Licensed Practical Nurse today this shift.
--- NOTE | 2020-08-27 04:45 | NUR ---
A&O X 4, AMBULATING FROM BATHROOM TO BED INDEPENDENTLY. PT ACCIDENTALLY REMOVED IV TO LEFT WRIST, CATH INTACT. 20G RESITED TO RIGHT FOREARM, 1ST ATTEMPT. TOLERATED WELL. SALINE LOCKED, CPOC.
[2020-08-27 05:54] VITALS: BP 150/76
[2020-08-27 06:18] LABS: BASOPHILS 1.4 % (0-2); EOSINOPHILS 6.9 % (0-7); IMMATURE GRANULOCYTES 0.2 % (0-5); LYMPHOCYTE ABS# 0.62 10x3/uL (1.32-3.57); LYMPHOCYTES 10.7 % (15-50); MCH 22.9 pg (26.0-34.0); MCHC 32.1 g/dL (31.0-37.0); MCV 71.2 fL (80.0-100.0); MONOCYTES 12.9 % (2-11); NEUTROPHIL ABS# 3.96 10x3/uL (1.78-5.38); NEUTROPHILS 67.9 % (40-80); PLATELET COUNT 186 10x3/uL (130-400); RBC 3.93 10x6/uL (4.20-6.10); WBC 5.8 10x3/uL (4.8-10.8)
[2020-08-27 06:48] LABS: ALBUMIN 2.3 g/dL (3.4-5.0); ANION GAP 15.1 mmol/L (8-16); BILIRUBIN - TOTAL 1.15 mg/dL (0.2-1.3); CALCIUM 7.9 mg/dL (8.5-10.1); CARBON DIOXIDE 23.1 mmol/L (21.0-32.0); CREATININE - SERUM 1.1 mg/dL (0.6-1.3); POTASSIUM - SERUM 4.2 mmol/L (3.5-5.1); PROTEIN - SERUM 6.7 g/dL (6.4-8.2)
--- NOTE | 2020-08-27 07:46 | NUR ---
resting in bed, no distress noted, eyes closed, cont to monitor level of confusion
--- NOTE | 2020-08-27 08:17 | NUR ---
REFUSED LOVENOX AND LACTULOSE, CONFUSED,
[2020-08-27 09:42] VITALS: BP 140/71
[2020-08-27 14:35] VITALS: BP 141/70
[2020-08-27 18:35] VITALS: BP 142/73
[2020-08-27 20:00] VITALS: BP 167/70
[2020-08-28] VITALS: BP 147/76
--- NOTE | 2020-08-28 01:00 | NUR ---
I have reviewed this patient and I concur with the Shift Assessment completed by the Licensed Practical Nurse today this shift.
[2020-08-28 04:00] VITALS: BP 118/52
[2020-08-28 08:00] VITALS: BP 116/71
--- NOTE | 2020-08-28 15:02 | NUR ---
Nutrition follow-up: Pt out in paredes; abdomen extremely swollen with hernia present. Pt receiving a regular diet; po intake at this time very poor. Pt also receiving an HS snack of sandwich tray to prevent overnight starvation. Labs reviewed Wt: 249# +BM; pt now refusing lactulose per nurse; nurse also reports pt is somewhat confused. Pt may benefit from an appetite stimulant. RDN will reassess pt 08/31/20
[2020-08-28 20:00] VITALS: BP 139/70
[2020-08-29 04:00] VITALS: BP 158/76
--- NOTE | 2020-08-29 05:11 | NUR ---
I have reviewed this patient and I concur with the Shift Assessment completed by the Licensed Practical Nurse today this shift.
[2020-08-29 07:20] LABS: INR 1.75 (0.85-1.17); PROTIME 18.9 SECONDS (11.6-15.0)
[2020-08-29 07:21] LABS: APTT 41.3 SECONDS (22.8-39.4)
[2020-08-29 10:12] VITALS: BP 123/64
[2020-08-29 12:29] VITALS: BP 132/61
--- NOTE | 2020-08-29 13:54 | NUR ---
RETURNED FOM PARACENTHESIS AND FREQUENT VITAL SIGNS BEING DONE. AWAKE AND WANTING TO GET OUT OF BED. MADE AWARE OF DRS ORDERS FOR BEDREST XS 2 HOURS
[2020-08-29 16:59] VITALS: BP 115/50
[2020-08-29 20:00] VITALS: BP 148/66
[2020-08-30] VITALS: BP 124/51
--- NOTE | 2020-08-30 03:12 | NUR ---
I have reviewed this patient and I concur with the Shift Assessment completed by the Licensed Practical Nurse today this shift.
[2020-08-30 04:00] VITALS: BP 115/55
--- NOTE | 2020-08-30 08:04 | NUR ---
PT SITTING UP ON SIDE OF BED, MEDS GIVEN, ASSESSMENT COMPLETE, PT TOOK HOME CHEMO MEDICATION LOCATED IN PT ROOM NEXT TO SINK, NO SIGNS OF DISTRESS, NO NEEDS AT THIS TIME
[2020-08-30 08:25] VITALS: BP 115/53
[2020-08-30 11:17] LABS: BASOPHILS 1.1 % (0-2); EOSINOPHILS 4.4 % (0-7); HEMATOCRIT 29.4 % (42.0-54.0); HEMOGLOBIN 9.2 g/dL (13.5-17.5); LYMPHOCYTES 7.2 % (15-50); MCH 22.6 pg (26.0-34.0); MCHC 31.4 g/dL (31.0-37.0); MEAN PLATELET VOLUME 8.1 fL (7.4-10.4); MONOCYTES 16.1 % (2-11); NEUTROPHILS 71.2 % (40-80); PLATELET COUNT 156 10x3/uL (130-400); RBC 4.08 10x6/uL (4.20-6.10); WBC 5.9 10x3/uL (4.8-10.8)
[2020-08-30 11:38] LABS: ALBUMIN 3.2 g/dL (3.4-5.0); ANION GAP 13.1 mmol/L (8-16); BILIRUBIN - TOTAL 1.66 mg/dL (0.2-1.3); CALCIUM 8.3 mg/dL (8.5-10.1); CARBON DIOXIDE 25.9 mmol/L (21.0-32.0); CREATININE - SERUM 1.4 mg/dL (0.6-1.3); PROTEIN - SERUM 7.2 g/dL (6.4-8.2)
[2020-08-30 12:58] VITALS: BP 137/58
[2020-08-30 17:47] VITALS: BP 137/55
[2020-08-30 19:40] VITALS: BP 117/68
--- NOTE | 2020-08-31 02:53 | NUR ---
PT RESTING IN BED WITH EYES OPEN. PT IS REQUESTIN MED FOR ITCHING ALL OVER HIS BODY. MD HERNANDEZ CONTACTED / ORDER BENADRYL [id number] PRN. WILL CONT WITH PLAN OF CARE.
[2020-08-31 04:00] VITALS: BP 128/96
--- NOTE | 2020-08-31 07:45 | NUR ---
PT LAYING IN BED RESTING WITH EYES CLOSED, NO SIGNS OF DISTRESS, RECEIVED REPORT FROM NIGHT RN
[2020-08-31 08:25] VITALS: BP 112/61
--- NOTE | 2020-08-31 10:11 | MORECARE ---
CASE MANAGEMENT DISCHARGE SUMMARY PATIENT: BELINDA WAGNER UNIT: [id number] ADM DATE: 08/24/20 AGE: 65 : 57 SEX: M ROOM/BED: D.2233 AUTHOR: TJ,DOC PHYSICIAN: REFERRING PHYSICIAN: ASIA WYATT MD DATE OF SERVICE: 08/31/20 Case Management Discharge Planning Summary COMMENTS ENTERED DATE: 08/31/20 10:06 CT COMMENT TYPE: Discharge Planning REVIEWER: Cherie Covington CM met with patient about dc planning needs. Plans to dc to home with his daughter and she will transport him to home. States would benefit from home health. Choice letter signed for [facility] or any covered by insurance. IMM signed and copy given and placed on chart. Patient states pcp is Dr. Hunt in [place]. Anticipate dc to home today. Orders faxed to [facility]. CM to follow and assist as needed. DCP REVIEW SUMMARY ANTICIPATED D/C DATE: EXPECTED LOS : CASE STATUS: DCP Initiated INITIAL REVIEW: 08/23/2020 INITIAL REVIEWER: Cherie Covington FINAL DISCHARGE DISPOSITION: : FINAL REVIEWER: FINAL REVIEW DATE: DCP Focus Questions & Answers DCP Screen QUESTION: ANSWER High Risk Factors: : Poor health literacy DCP Evaluation QUESTION: ANSWER Patient's ability to cope with chronic illness : a. Adequate (0-3 ED visits in 6 mos., adequate financial resources, attends scheduled appts.) Patient and/or caregiver agree upon recommended discharge plan? : Yes Family / Caregiver's ability to cope with chronic illness: : a. Adequate (ability to meet patient's medical needs, ensures patient attends medical appts.) Patient's current cognitive status: : *Oriented to person, place, situation, time and present Does the patient have the ability to pay for or attain post discharge needs / services? : Yes Family / Caregiver's ability to cope with chronic illness: : a. Adequate (ability to meet patient's medical needs, ensures patient attends medical appts.) Physical Status: : Independent with ADL's Equipment needed for post hospitalization: : None Is there a likelihood that the patient will require additional services to return to the preadmission environment? : Yes Living Arrangements: : Home with others Results of this evaluation have been discussed with: : Patient Patient with capacity for self-care or can be cared for in same environment as prior to hospitalization? : Yes Baseline cognitive status: : *Oriented to person, place, situation, time and present Physical environment modification needed / anticipated for discharge: : No Comments: : STATES DAUGHTER LIVES WITH HIM AND SHE WILL PICK HIM UP AT TIME OF DC. Planned post hospital services available for patient? : Yes Pharmacy name(s): : [facility], PCP DR. HUNT IN [place] Planned post hospital services covered by insurance plan? : Yes Does Patient have transportation to get home and to follow-up medical appointments when discharged from the hospital? : Yes Would patient like to participate in any Care Coordination programs (if applicable): : Not applicable Equipment in use: : None Mental health screen: : No mental health history DCP Re-evaluation QUESTION: ANSWER Would patient like to participate in any Care Coordination programs (if applicable): : Not applicable PATIENT: BELINDA WAGNER ENCOUNTER: [id number] MEDICAL RECORD#: [id number] ADMISSION DATE: 08/24/2020 DISCHARGE DATE: ATTENDING MD: ASIA NUÑEZ : AGE: 65 MARITAL STATUS: S DC PLAN ID: [id number] FACILITY: [facility] PRINTED ON: 08/31/20 10:10 CT All edits/amendments must be made on the electronic document DICTATION DATE: 08/31/20 1010 OVERNIGHT CASHIER: CHERYL 08/31/20 1010 RPT#: [id number] DC DATE: STATUS: ADM IN [facility] [address] [place] [address] END OF REPORT
--- NOTE | 2020-08-31 14:19 | NUR ---
PATIENT RECIEVED DC INSTRUCTIONS. DAUGHTER AT SIDE. VERBALIZED UNDERSTANDING. NO QUESTIONS AT THIS TIME. IV REMOVED WITH CATH TIP INTACT. TRANSPORT CALLED TO ASSIST PATIENT IN WC DOWN TO PRIVATE VEHICLE WITH DAUGHTER AND PATIENTS PERSONAL BELONGINGS.
--- NOTE | 2020-09-01 10:43 | MORECARE ---
CASE MANAGEMENT DISCHARGE SUMMARY PATIENT: BELINDA WAGNER UNIT: [id number] ADM DATE: 08/24/20 AGE: 65 : 57 SEX: M ROOM/BED: D.2233 AUTHOR: TJ,DOC PHYSICIAN: REFERRING PHYSICIAN: ASIA WYATT MD DATE OF SERVICE: 09/01/20 Case Management Discharge Planning Summary COMMENTS ENTERED DATE: 08/31/20 10:06 CT COMMENT TYPE: Discharge Planning REVIEWER: Cherie Covington CM met with patient about dc planning needs. Plans to dc to home with his daughter and she will transport him to home. States would benefit from home health. Choice letter signed for [facility] or any covered by insurance. IMM signed and copy given and placed on chart. Patient states pcp is Dr. Hunt in [place]. Anticipate dc to home today. Orders faxed to [facility]. CM to follow and assist as needed. DCP REVIEW SUMMARY ANTICIPATED D/C DATE: EXPECTED LOS : CASE STATUS: DCP Initiated INITIAL REVIEW: 08/23/2020 INITIAL REVIEWER: Cherie Covington FINAL DISCHARGE DISPOSITION: : FINAL REVIEWER: FINAL REVIEW DATE: DCP Focus Questions & Answers DCP Screen QUESTION: ANSWER High Risk Factors: : Poor health literacy DCP Evaluation QUESTION: ANSWER Patient and/or caregiver agree upon recommended discharge plan? : Yes Patient's current cognitive status: : *Oriented to person, place, situation, time and present Patient's ability to cope with chronic illness : a. Adequate (0-3 ED visits in 6 mos., adequate financial resources, attends scheduled appts.) Family / Caregiver's ability to cope with chronic illness: : a. Adequate (ability to meet patient's medical needs, ensures patient attends medical appts.) Does the patient have the ability to pay for or attain post discharge needs / services? : Yes Family / Caregiver's ability to cope with chronic illness: : a. Adequate (ability to meet patient's medical needs, ensures patient attends medical appts.) Physical Status: : Independent with ADL's Equipment needed for post hospitalization: : None Is there a likelihood that the patient will require additional services to return to the preadmission environment? : Yes Living Arrangements: : Home with others Results of this evaluation have been discussed with: : Patient Patient with capacity for self-care or can be cared for in same environment as prior to hospitalization? : Yes Baseline cognitive status: : *Oriented to person, place, situation, time and present Comments: : STATES DAUGHTER LIVES WITH HIM AND SHE WILL PICK HIM UP AT TIME OF DC. Physical environment modification needed / anticipated for discharge: : No Planned post hospital services available for patient? : Yes Pharmacy name(s): : [facility], PCP DR. HUNT IN [place] Planned post hospital services covered by insurance plan? : Yes Does Patient have transportation to get home and to follow-up medical appointments when discharged from the hospital? : Yes Would patient like to participate in any Care Coordination programs (if applicable): : Not applicable Equipment in use: : None Mental health screen: : No mental health history DCP Re-evaluation QUESTION: ANSWER Would patient like to participate in any Care Coordination programs (if applicable): : Not applicable PATIENT: BELINDA WAGNER ENCOUNTER: [id number] MEDICAL RECORD#: [id number] ADMISSION DATE: 08/24/2020 DISCHARGE DATE: 08/31/2020 ATTENDING MD: ASIA NUÑEZ : AGE: 65 MARITAL STATUS: S DC PLAN ID: [id number] FACILITY: [facility] PRINTED ON: 09/01/20 10:43 CT All edits/amendments must be made on the electronic document DICTATION DATE: 09/01/201042 ICE CREAM VENDOR: CHERYL 09/01/201042 RPT#: [id number] DC DATE:08/31/20 STATUS: DIS IN [facility] [address] [place] [address] END OF REPORT
== END 2020-08-31 15:01 | disposition home health service (06) | DRG 436 ==
LOC: D.ER 09:57 → D.MS 10:43 → OBSVTIME 10:43 → D.MS 08-24 15:31
PROVIDERS: Emergency Medicine; Family Medicine; General Practice; ADMIT Legal Medicine; ATTEND Legal Medicine
PROC: 0W9G3ZZ Drainage of Peritoneal Cavity, Percutaneous Approach (ICD-10-PCS; principal; 2020-08-24)
PROC: 0W9G3ZZ Drainage of Peritoneal Cavity, Percutaneous Approach (ICD-10-PCS; 2020-08-29)
DX: C22.0 Liver cell carcinoma (principal); R18.0 Malignant ascites; K74.60 Unspecified cirrhosis of liver; I10 Essential (primary) hypertension; B19.20 Unspecified viral hepatitis C without hepatic coma; G89.29 Other chronic pain; M54.9 Dorsalgia, unspecified

== ENCOUNTER 2020-09-27 15:20 | Inpatient (IN) | payer MEDICARE, MEDICAID ==
[~2020-09-27] VITALS: Ht 180.3 cm; Wt 115.5 kg
[~2020-09-27 15:20] MED LIST changes: +ALDACTONE50 MG PO; +HYDROCODON-ACE1 EA10; +HYDROCODON-ACE1 EA10 PO
[2020-09-27 16:05] VITALS: Ht 180.3 cm; Wt 115.5 kg
--- NOTE | 2020-09-27 16:21 | NUR ---
PT VS STABLE 132/59, 98% RA, 93, 20. PER SON IN LAW - UNSURE HOW MUCH ALCOHOL/FOOD INTAKE TODAY (PT DRINKS ALCOHOL DAILY). PT IS REFUSING TO ANSWER ASSESSMENT QUESTIONS. DR ANDERSON SAID PUT IN ORDERS FOR TOMORROW FOR PARA.
[2020-09-27 16:47] LABS: BASOPHILS 0.9 % (0-2); EOSINOPHILS 3.7 % (0-7); HEMATOCRIT 28.2 % (42.0-54.0); HEMOGLOBIN 8.9 g/dL (13.5-17.5); LYMPHOCYTES 5.7 % (15-50); MCH 23.7 pg (26.0-34.0); MCHC 31.7 g/dL (31.0-37.0); MCV 74.8 fL (80.0-100.0); MEAN PLATELET VOLUME 8.5 fL (7.4-10.4); MONOCYTES 7.5 % (2-11); NEUTROPHILS 82.2 % (40-80); PLATELET COUNT 174 10x3/uL (130-400); RBC 3.77 10x6/uL (4.20-6.10); RDW 24.8 % (11.5-14.5); WBC 5.3 10x3/uL (4.8-10.8)
[2020-09-27 16:52] LABS: ALBUMIN 2.5 g/dL (3.4-5.0); ANION GAP 13.6 mmol/L (8-16); APTT 37.5 SECONDS (22.8-39.4); BILIRUBIN - TOTAL 2.89 mg/dL (0.2-1.3); CALCIUM 7.6 mg/dL (8.5-10.1); CARBON DIOXIDE 21.9 mmol/L (21.0-32.0); CREATININE - SERUM 1.3 mg/dL (0.6-1.3); INR 1.6 (0.85-1.17); POTASSIUM - SERUM 4.5 mmol/L (3.5-5.1); PROTEIN - SERUM 7.4 g/dL (6.4-8.2); PROTIME 17.7 SECONDS (11.6-15.0)
[2020-09-27 17:03] VITALS: BP 132/49
--- NOTE | 2020-09-27 18:03 | NUR ---
PT ARRIVED TO UNIT VIA WHEELCHAIR ACCOMPANIED BY FAMILY. PT IS REFUSING LACTULOSE AT THIS TIME STATING "I DON'T FEEL GOOD." EXPLAINED TO PT THAT THIS MEDICATION WOULD HELP HIM TO FEEL BETTER BY BRINGING DOWN AMMONIA LEVELS. PT STATES HE DOESN'T FEEL LIKE DEALING WITH IT AT THIS TIME.
[2020-09-27 20:00] VITALS: BP 126/64
[2020-09-28] VITALS: BP 122/73
[2020-09-28] MEDS ORDERED: LISINOPRIL20 MG PO (01:26)
[2020-09-28] MEDS ORDERED: ONDANSETRON ODT8 MG PO (01:26)
[2020-09-28] MEDS ORDERED: K-DUR20 MEQ PO (01:27)
[2020-09-28] MEDS ORDERED: FUROSEMIDE40 MG PO (01:27)
[2020-09-28] MEDS ORDERED: DURAGESIC1 EAC4 TOPICAL (01:28)
[2020-09-28 04:00] VITALS: BP 107/60
[2020-09-28 06:17] LABS: APTT 42.6 SECONDS (22.8-39.4)
[2020-09-28 06:18] LABS: BASOPHILS 0.8 % (0-2); EOSINOPHILS 0.6 % (0-7); HEMATOCRIT 25.2 % (42.0-54.0); HEMOGLOBIN 8.2 g/dL (13.5-17.5); LYMPHOCYTES 4.9 % (15-50); MCHC 32.3 g/dL (31.0-37.0); MCV 74.2 fL (80.0-100.0); MEAN PLATELET VOLUME 8.7 fL (7.4-10.4); MONOCYTES 10.4 % (2-11); NEUTROPHILS 83.3 % (40-80); RDW 24.3 % (11.5-14.5)
[2020-09-28 06:20] LABS: INR 1.96 (0.85-1.17); PROTIME 20.7 SECONDS (11.6-15.0)
[2020-09-28 06:27] LABS: ANION GAP 16.4 mmol/L (8-16); CALCIUM 7.6 mg/dL (8.5-10.1); CARBON DIOXIDE 18.5 mmol/L (21.0-32.0); CREATININE - SERUM 1.6 mg/dL (0.6-1.3); POTASSIUM - SERUM 4.9 mmol/L (3.5-5.1)
[2020-09-28 06:43] LABS: PLATELET COUNT 137 10x3/uL (130-400); WBC 8.7 10x3/uL (4.8-10.8)
--- NOTE | 2020-09-28 07:36 | NUR ---
ALERT AND ORIENTED. ASSESSMENT COMPLETE. REMOVED TWO 25 MCG FENTANYL PATCHES FROM STOMACH. LEFT ONE IN PLACE THAT PATIENT STATES WAS JUST PLACED TWO DAYS AGO. 25MCG PATCH ON PATIENT'S HOME MED REC. EDUCATION PROVIDED TO PATIENT THAT OLD PATCH NEEDS TO BE REMOVED BEFORE PLACING NEW PATCH. PATIENT STATES "I KNOW BUT IF I TAKE THE OLD ONE OFF, I DON'T GET THE FULL EFFECT." WILL MAKE MD AWARE OF SITUATION. BED LOW. CALL CANALES AND PEROSNAL ITEMS IN REACH. WILL CONTINUE TO MONITOR.
[2020-09-28 08:44] VITALS: BP 122/43
--- NOTE | 2020-09-28 09:02 | NUR ---
GOT CALL FROM SOPHIE IN IR WHO STATES PATIENT'S INR IS TOO HIGH FOR PARACENTESIS THIS AM. STATES TO HOLD LOVENOX AND WILL RECHECK INR TOMORROW.
--- NOTE | 2020-09-28 09:04 | NUR ---
DAWIT DUMONT MADE AWARE PATIENT'S INR TOO HIGH FOR PARACENTESIS TODAY.
[2020-09-28] MEDS ORDERED: NEXAVAR200 MG PO (09:59)
[2020-09-28 13:01] VITALS: BP 138/71
--- NOTE | 2020-09-28 13:57 | NUR ---
HERIBERTO IN LAB MADE AWARE THAT MEPHYTON STARTED AT 1330 FOR TIMING OF LAB DRAW.
[2020-09-28 15:48] LABS: INR 2.32 (0.85-1.17); PROTIME 23.7 SECONDS (11.6-15.0)
[2020-09-28 16:37] VITALS: BP 116/71
[2020-09-28 20:00] VITALS: BP 127/64
[2020-09-29] VITALS: BP 111/56
[2020-09-29 04:00] VITALS: BP 106/56
--- NOTE | 2020-09-29 05:16 | NUR ---
I have reviewed this patient and I concur with the Shift Assessment completed by the Licensed Practical Nurse today this shift.
[2020-09-29 05:36] LABS: BASOPHILS 0.7 % (0-2); EOSINOPHILS 4.5 % (0-7); HEMOGLOBIN 8.2 g/dL (13.5-17.5); LYMPHOCYTES 5.3 % (15-50); MCH 24.4 pg (26.0-34.0); MCHC 32.8 g/dL (31.0-37.0); MCV 74.6 fL (80.0-100.0); MONOCYTES 14.9 % (2-11); NEUTROPHILS 74.6 % (40-80); PLATELET COUNT 129 10x3/uL (130-400); RBC 3.35 10x6/uL (4.20-6.10); RDW 24.1 % (11.5-14.5); WBC 7.3 10x3/uL (4.8-10.8)
[2020-09-29 06:13] LABS: ANION GAP 16.8 mmol/L (8-16); CALCIUM 7.4 mg/dL (8.5-10.1); CARBON DIOXIDE 18.7 mmol/L (21.0-32.0); POTASSIUM - SERUM 4.5 mmol/L (3.5-5.1)
--- NOTE | 2020-09-29 07:43 | NUR ---
ALERT AND ORIENTED. ASSESSMENT COMPLETE. DENIES NEEDS. BED LOW. CALL CANALES AND PERSONAL ITEMS IN REACH. WILL CONTINUE TO MONITOR.
[2020-09-29 07:46] LABS: INR 1.94 (0.85-1.17); PROTIME 20.5 SECONDS (11.6-15.0)
[2020-09-29 07:47] LABS: APTT 65.4 SECONDS (22.8-39.4)
--- NOTE | 2020-09-29 08:04 | NUR ---
SPOKE WITH [facility]HIE IN IR. STATES TO CALL DR WYATT AND GET ORDER TO GIVE PATIENT 1 UNIT FFP AND REDRAW INR AND THEN CAN DO PARACENTESIS TODAY. WAITING CALL BACK FROM DR WYATT'S C WPF DEVELOPER, JULIA.
--- NOTE | 2020-09-29 08:16 | NUR ---
SPOKE WITH DR WYATT WHO STATES NO NEED FOR FFP. STATES WILL CALL AND TALK TO DR SAHU. MADE PATIENT NPO. PATIENT AWARE.
[2020-09-29 09:39] VITALS: BP 119/64
--- NOTE | 2020-09-29 11:32 | NUR ---
PATIENT TAKEN TO CT.
--- NOTE | 2020-09-29 14:20 | NUR ---
[facility] WAS CALLED AT 1412 D/T PATIENT WITH EXTREME AMS. UNABLE TO REDIRECT. PUT BACK IN BED WITH ASSIST OF FOUR NURSES AND ONE TWO CNAS. BED ALARM PLACED ON BED. ICU SHOWED UP AT 1415. VSS BP 124/87, HR 82, RR 20, O2 99% ON RA. BLOOD SUGAR 106. PLASTIC CARD GRADER CARDROOM SPOKE WITH DR WYATT WHO STATES WILL CALL FAMILY AND TALK TO THEM ABOUT HOSPICE FOR PATIENT.
--- NOTE | 2020-09-29 14:34 | NUR ---
PATIENT NOT AROUSABLE ENOUGH TO TAKE LACTULOSE. AWARE.
--- NOTE | 2020-09-29 14:58 | NUR ---
CALLED CHANI AT [facility] FOR TELE.
--- NOTE | 2020-09-29 15:17 | NUR ---
TELEMETRY PLACED ON PATIENT.
--- NOTE | 2020-09-29 15:41 | MORECARE ---
CASE MANAGEMENT DISCHARGE SUMMARY PATIENT: BELINDA WAGNER UNIT: [id number] ADM DATE: 09/27/20 AGE: 65 : 57 SEX: M ROOM/BED: D.2209 AUTHOR: TJ,DOC PHYSICIAN: REFERRING PHYSICIAN: ASIA WYATT MD DATE OF SERVICE: 09/29/20 Case Management Discharge Planning Summary COMMENTS ENTERED DATE: 09/29/20 15:35 CT COMMENT TYPE: Discharge Planning REVIEWER: Cherie Covington FAXED HOSPICE ORDER TO [phone], THEY WILL SEND A NURSE OUT TO EVAL AND ADMIT IF APPROPRIATE AT 5PM TODAY. DCP REVIEW SUMMARY ANTICIPATED D/C DATE: EXPECTED LOS : CASE STATUS: DCP Initiated INITIAL REVIEW: 09/27/2020 INITIAL REVIEWER: Cherie Covington FINAL DISCHARGE DISPOSITION: : FINAL REVIEWER: FINAL REVIEW DATE: DCP Focus Questions & Answers QUESTION: ANSWER : PATIENT: BELINDA WAGNER ENCOUNTER: [id number] MEDICAL RECORD#: [id number] ADMISSION DATE: 09/27/2020 DISCHARGE DATE: ATTENDING MD: ASIA NUÑEZ : AGE: 65 MARITAL STATUS: S DC PLAN ID: [id number] FACILITY: [facility] PRINTED ON: 09/29/20 15:41 CT All edits/amendments must be made on the electronic document DICTATION DATE: 09/29/201540 INSIDE SALES ADVERTISING EXECUTIVE: CHERYL 09/29/20 154 RPT#: [id number] DC DATE: STATUS: ADM IN [facility] [address] [place] [address] END OF REPORT
--- NOTE | 2020-09-29 17:16 | NUR ---
PATIENT TAKEN FOR THORACENTESIS.
[2020-09-29 18:13] VITALS: BP 120/57
[2020-09-29 21:05] VITALS: BP 132/58
--- NOTE | 2020-09-29 21:15 | MORECARE ---
CASE MANAGEMENT DISCHARGE SUMMARY PATIENT: BELINDA WAGNER UNIT: [id number] ADM DATE: 09/27/20 AGE: 65 : 57 SEX: M ROOM/BED: D.2209 AUTHOR: TJ,DOC PHYSICIAN: REFERRING PHYSICIAN: ASIA WYATT MD DATE OF SERVICE: 09/29/20 Case Management Discharge Planning Summary COMMENTS ENTERED DATE: 09/29/20 15:35 CT COMMENT TYPE: Discharge Planning REVIEWER: Cherie Covington FAXED HOSPICE ORDER TO [phone], THEY WILL SEND A NURSE OUT TO EVAL AND ADMIT IF APPROPRIATE AT 5PM TODAY. DCP REVIEW SUMMARY ANTICIPATED D/C DATE: EXPECTED LOS : CASE STATUS: DCP Initiated INITIAL REVIEW: 09/27/2020 INITIAL REVIEWER: Cherie Covington FINAL DISCHARGE DISPOSITION: : FINAL REVIEWER: FINAL REVIEW DATE: DCP Focus Questions & Answers QUESTION: ANSWER : PATIENT: BELINDA WAGNER ENCOUNTER: [id number] MEDICAL RECORD#: [id number] ADMISSION DATE: 09/27/2020 DISCHARGE DATE: 09/29/2020 ATTENDING MD: ASIA NUÑEZ : AGE: 65 MARITAL STATUS: S DC PLAN ID: [id number] FACILITY: [facility] PRINTED ON: 09/29/20 21:15 CT All edits/amendments must be made on the electronic document DICTATION DATE: 09/29/202114 VIDEO PLAYER MECHANIC: CHERYL 09/29/202114 RPT#: [id number] DC DATE:09/29/20 STATUS: DIS IN [facility] [address] [place] [address] END OF REPORT
--- NOTE | 2020-10-02 08:39 | MORECARE ---
CASE MANAGEMENT DISCHARGE SUMMARY PATIENT: BELINDA WAGNER UNIT: [id number] ADM DATE: 09/27/20 AGE: 65 : 57 SEX: M ROOM/BED: D.2209 AUTHOR: TJ,DOC PHYSICIAN: REFERRING PHYSICIAN: ASIA WYATT MD DATE OF SERVICE: 10/02/20 Case Management Discharge Planning Summary COMMENTS ENTERED DATE: 09/29/20 15:35 CT COMMENT TYPE: Discharge Planning REVIEWER: Cherie Covington FAXED HOSPICE ORDER TO [phone], THEY WILL SEND A NURSE OUT TO EVAL AND ADMIT IF APPROPRIATE AT 5PM TODAY. DCP REVIEW SUMMARY ANTICIPATED D/C DATE: EXPECTED LOS : CASE STATUS: DCP Initiated INITIAL REVIEW: 09/27/2020 INITIAL REVIEWER: Cherie Covington FINAL DISCHARGE DISPOSITION: : FINAL REVIEWER: FINAL REVIEW DATE: DCP Focus Questions & Answers QUESTION: ANSWER : PATIENT: BELINDA WAGNER ENCOUNTER: [id number] MEDICAL RECORD#: [id number] ADMISSION DATE: 09/27/2020 DISCHARGE DATE: 09/29/2020 ATTENDING MD: ASIA NUÑEZ : AGE: 65 MARITAL STATUS: S DC PLAN ID: [id number] FACILITY: [facility] PRINTED ON: 10/02/20 8:38 CT All edits/amendments must be made on the electronic document DICTATION DATE: 10/02/20837 SALES SUPPORT ADMINISTRATOR: DM 10/02/20837 RPT#: [id number] DC DATE:09/29/20 STATUS: DIS IN [facility] [address] [place] [address] END OF REPORT
== END 2020-09-29 21:12 | disposition hospice, inpatient (51) | DRG 436 ==
LOC: D.SDCHOLD 15:20 → D.MS 15:35
PROVIDERS: General Practice; Specialist; ADMIT Legal Medicine; ATTEND Legal Medicine
PROC: 0W9G3ZZ Drainage of Peritoneal Cavity, Percutaneous Approach (ICD-10-PCS; principal; 2020-09-29 16:40)
DX: C22.0 Liver cell carcinoma (principal); R18.8 Other ascites; N17.9 Acute kidney failure, unspecified; L03.116 Cellulitis of left lower limb; L03.115 Cellulitis of right lower limb; B19.20 Unspecified viral hepatitis C without hepatic coma; K74.60 Unspecified cirrhosis of liver

== ENCOUNTER 2020-09-29 21:10 | Inpatient (IN) | payer OTHER ==
[~2020-09-29] VITALS: Ht 180.3 cm; Wt 113.4 kg
[~2020-09-29 21:10] MED LIST changes: +DURAGESIC1 EAC4 TOPICAL; +LISINOPRIL20 MG PO; +NEXAVAR200 MG PO; +ONDANSETRON ODT8 MG PO
--- NOTE | 2020-09-29 22:00 | NUR ---
PT ADMITTED TO HOSPICE. PLAN IS TO DISCHARGE TOMORROW TO GO HOME ON HOSPICE. PT SLEEPING AFTER ATIVAN GIVEN. VITAL SIGNS STABLE. OXYGEN AT 2L/NC.
[2020-09-30 02:21] VITALS: Ht 180.3 cm; Wt 113.4 kg
[2020-09-30 05:56] VITALS: BP 128/67
--- NOTE | 2020-09-30 08:00 | NUR ---
PT RESTING QUIETLY WITH EYES CLOSED. RESP EVEN AND UNLABORED. O2 @ 2L NC IN PLACE. PT MUMBLES WHEN STAFF ADDRESSES HIM, BUT DOES NOT AWAKEN. PT DOES NOT PRESENT WITH PAIN, INCONTINENT CARE PROVIDED AT THIS TIME. SALINE LOC TO LEFT AC, SITE WITHOUT REDNESS OR EDEMA. CL WITHIN REACH.
[2020-09-30 09:34] VITALS: BP 132/60
[2020-09-30 14:53] VITALS: BP 131/65
[2020-09-30 17:30] VITALS: BP 107/62
--- NOTE | 2020-09-30 18:06 | NUR ---
AMBULANCE HERE FOR TRANSPORT
== END 2020-09-30 18:06 | disposition home health service (06) | DRG 951 ==
LOC: D.MS 21:10
PROVIDERS: ADMIT Legal Medicine; ATTEND Legal Medicine
DX: Z51.5 Encounter for palliative care (principal)